=== PATIENT | female | born 2000 | race American Indian/Alaskan Native ===

== ENCOUNTER 2021-12-05 09:32 | Emergency (ER) | payer OTHER ==
[2021-12-05] MEDS ORDERED: dexAMETHasone 4 MG/ML VIAL IM ONE (10:11)
--- NOTE | 2021-12-05 10:11 | Emergency Department Report ---
Minor Respiratory - HPI Chief Complaint: Sore Throat Stated Complaint: POOSIBLE STREP THROAT Time Seen by Provider: 12/05/21 10:09 Duration: 3 Days Pain Location: Throat Severity: mild Minor Respiratory: Yes Sore Throat, Yes Able to Tolerate Fluids, No Rhinorrhea, No Ear Pain, No Cough, No Sick Contacts, No Hemoptysis, No Chest Pain, No Shortness of Breath, No Fever Other History: 21 yo comes to ER with sore throat. abc intact. controlling secretions. taking po. no fever or chills. no sob. no cp. non ill on exam ED Review of Systems ROS: Stated complaint: POOSIBLE STREP THROAT Other details as noted in HPI Comment: All other systems reviewed and negative ED Past Medical Hx - Past Medical History Previous Medical History?: No - Surgical History Past Surgical History?: No - Family History Family history: no significant - Social History Smoking Status: Never Smoker Substance Use Type: None - Medications Home Medications: Home Medications Medication Instructions Recorded Confirmed Last Taken Type Amoxicillin [Trimox CAP] 500 mg PO BID #20 capsule 12/05/21 Unknown Rx Minor Respiratory Exam - Exam General: Vital signs noted. No distress. Alert and acting appropriately. HEENT: Yes Pharyngeal Erythema (uvulitis on exam), Yes Moist Mucous Membranes, No Pharyngeal Exudates, No Rhinorrhea, No Conjuctival Injection, No Frontal Tenderness, No Maxillary Tenderness Ear: Neither TM Bulge, Neither TM Erythema, Neither EAC Pain, Neither EAC Discharge Neck: Yes Supple, No Adenopathy Lungs: Yes Good Air Exchange, No Wheezes, No Ronchi, No Stridor, No Cough, No Labored Respirations, No Retractions, No Use of Accessory Muscles, No Other Abnormal Lung Sounds Heart: Yes Regular, No Murmur Abdomen: Yes Normal Bowel Sounds, No Tenderness, No Peritoneal Signs Skin: No Rash, No Edema Neurologic: Alert and oriented, no deficits. Musculoskeletal: Unremarkable. ED Course Vital Signs 12/05/21 10:04 Temperature 98.6 F Pulse Rate 86 Respiratory 16 Rate Blood Pressure 98/56 [Right] O2 Sat by Pulse 100 Oximetry ED Medical Decision Making - Medical Decision Making UVULITIS ON EXAM VSS TAKING PO ABC INTACT DECADRON AND AMOX GIVEN IN ER TOLERATING PO DC HOME WITH DC PLAN OF CARE INCLUDING RX AND FOLLOW UP. SHE VERBALIZES UNDERSTANDING Vital Signs 12/05/21 10:04 Temperature 98.6 F Pulse Rate 86 Respiratory 16 Rate Blood Pressure 98/56 [Right] O2 Sat by Pulse 100 Oximetry - Differential Diagnosis PHARYNGITIS Critical care attestation.: If time is entered above; I have spent that time in minutes in the direct care of this critically ill patient, excluding procedure time. ED Disposition Clinical Impression: Uvulitis Disposition: 01 HOME / SELF CARE / HOMELESS Is pt being admited?: No Does the pt Need Aspirin: No Condition: Stable Instructions: Pharyngitis, [id number] Additional Instructions: MED ORDERED TODAY MOTRIN OR TYLENOL FOR PAIN STAY WELL HYDRATED FOLLOW UP WITH PCP TO BE SURE YOU ARE GETTING BETTER REFERRAL BELOW Prescriptions: Amoxicillin [Trimox CAP] 500 mg PO BID #20 capsule Referrals: FELY CHOWDHURY MD [Staff Physician] - 3-5 Days Time of Disposition: 10:14
[2021-12-05] MEDS ORDERED: AMOXICILLIN 500 MG CAP PO ONE (10:12)
[2021-12-05 11:07] VITALS: BP 118/76
== END 2021-12-05 11:06 | disposition home or self-care (01) ==
LOC: ED 09:32
DX: K12.2 Cellulitis and abscess of mouth (principal)
CPT/HCPCS: 96372; 99282; J1100